=== PATIENT | female | born 1930 | race Caucasian/White ===

== ENCOUNTER 2017-12-20 13:03 | Outpatient (CLI) | payer MEDICARE, BC ==
--- NOTE | 2017-12-20 15:21 | RAD ---
CHEST 2 VIEWS: HISTORY: Dyspnea. FINDINGS: Normal cardiac silhouette. The pulmonary vessels and hilum are normal. Costophrenic angles are alexandra r. Lungs are hyperinflated. Chronic changes, without consolidation or mass suspected. There is ruben ateral apical pleural thickening. No pneumothorax. There is diffuse bone demineralization. Promine nt osteophyte formation on the inferior aspect of the left humerus likely due to degenerative change. IMPRESSION: No acute cardiopulmonary process. POS: [facility]
== END 2017-12-20 13:04 | disposition home or self-care (01) ==
LOC: RAD 13:03
PROVIDERS: ATTEND Internal Medicine Critical Care Medicine
DX: R06.00 Dyspnea, unspecified (principal)
CPT/HCPCS: 71046

== ENCOUNTER 2018-07-04 12:38 | Outpatient (CLI) | payer MEDICARE, BC ==
--- NOTE | 2018-07-04 15:52 | RAD ---
CHEST TWO VIEWS: HISTORY: Dyspnea. COMPARISON: 12/20/2017 FINDINGS: Normal cardiac silhouette. Pulmonary vessels and hilum are normal. Costophrenic angles are clear. Lungs are hyperinflated with chronic changes. No masses or consolidation. No pneumothorax. Mild teo ne demineralization. IMPRESSION: No acute cardiopulmonary process. POS: [facility]
== END 2018-07-04 12:39 | disposition home or self-care (01) ==
LOC: RAD 12:38
PROVIDERS: ATTEND Internal Medicine Critical Care Medicine
DX: R06.00 Dyspnea, unspecified (principal)
CPT/HCPCS: 71046

== ENCOUNTER 2019-02-16 12:58 | Outpatient (CLI) | payer MEDICARE, BC ==
--- NOTE | 2019-02-16 13:19 | RAD ---
PA AND LATERAL VIEWS CHEST: HISTORY: Dyspnea. FINDINGS: Comparison is made with the exam of 07/04/2018. The heart size is normal. The aorta is tortuous. The lungs are expanded without focal areas of cons olidation, pneumothoraces, or pleural effusions. Mild chronic changes are stable. Bony structures a re unchanged. There are degenerative changes in the spine. IMPRESSION: Stable exam. No acute process. POS: [facility]
== END 2019-02-16 12:59 | disposition home or self-care (01) ==
LOC: RAD 12:58
PROVIDERS: ATTEND Internal Medicine Critical Care Medicine
DX: R06.00 Dyspnea, unspecified (principal)
CPT/HCPCS: 71046

== ENCOUNTER 2020-05-11 08:45 | Emergency (ER) | payer MEDICARE, BC ==
[2020-05-11] MEDS ORDERED: Acetaminophen 325 MG TAB ONE (09:44)
[2020-05-11 10:04] LABS: #Eosinphils 0.2 thou/uL (0.0-0.7); #Lymphocytes 0.8 thou/uL (1.20-3.40); #Monocytes 1.1 thou/uL (0.11-0.59); #Neutrophils 14.6 thou/uL (1.40-6.50); %Eosinophils 1.4 % (0.0-10.0); %Lymphocytes 4.8 % (21.0-51.0); %Monocytes 6.6 % (0.0-10.0); %Neutrophils 87.1 % (42.0-75.0); Mean Corpuscular HGB CONC 32.5 g/dL (32.0-36.0); Mean Corpuscular Hemoglobin 31.4 pg (27.0-31.0); Mean Corpuscular Volume 96.4 fL (78.0-98.0); Mean Platelet Volume 6.9 fL (7.4-10.4); Platelet Count 277 thou/uL (130-400); RBC Distribution Width 11.6 % (11.5-14.5); Red Blood Cell (RBC) Count 4.47 mill/uL (4.20-5.40); White Blood Cell (WBC) Count 16.8 thou/uL (4.8-10.8)
[2020-05-11 10:24] LABS: ALT (SGPT) 22 U/L (8-55); AST (SGOT) 27 U/L (5-34); Albumin 4.2 g/dL (3.4-4.8); Alkaline Phosphatase 113 U/L (40-110); Anion Gap 11 mmol/L (10-20); BUN (Urea Nitrogen) 9 mg/dL (9.8-20.1); Bilirubin, Total 0.8 mg/dL (0.2-1.2); Calc. Creatinine Clearance 0 mL/min (70-130); Calcium 9.9 mg/dL (7.8-10.44); Carbon Dioxide 32 mmol/L (23-31); Chloride 95 mmol/L (98-107); Estimated GFR-MDRD 70; Globulin 2.9 g/dL (2.4-3.5); Glucose 130 mg/dL (83-110); Potassium 3.5 mmol/L (3.5-5.1); Protein, Total 7.1 g/dL (6.0-8.3); Sodium 134 mmol/L (136-145)
[2020-05-11 10:58] LABS: Bilirubin Negative (Negative); Blood, Urine Negative (Negative); Clarity Turbid (Clear); Glucose, Urine (Dipstick) Normal (Negative); Ketone, Urine Negative (Negative); Leukocyte Negative Leu/uL (Negative); Nitrite Negative (Negative); Protein, Urine (Dipstick) Negative (Neg-Trace); Specific Gravity, Urine 1.009 (1.002-1.036); Urobilinogen Normal mg/dL (Less than 2)
--- NOTE | 2020-05-11 11:22 | RAD ---
PORTABLE CHEST: HISTORY: Syncopal episode. FINDINGS: Heart size within normal limits. There are atherosclerotic changes of the aorta. The lungs are alexandra r of any confluent infiltrative process. There are some slight vague interstitial opacities in the l lion bases slightly more prominent than on the previous exam. I cannot exclude this is early ground-g lass infiltrative lung change. The bones appear demineralized. There are arthritic changes of both shoulders. IMPRESSION: Chronic lung changes. Some of the changes in the lung bases are slightly more prominent than on the prior examination. I cannot exclude these are ground-glass infiltrates. Clinical correlation as to any potential for COVID exposure. POS: OFF
--- NOTE | 2020-05-11 11:23 | RAD ---
RIGHT SHOULDER 3 VIEWS: HISTORY: Shoulder pain after falling off the toilet. FINDINGS: There are moderate arthritic changes of the AC and glenohumeral joints. There are no signs of fractu re or dislocation. IMPRESSION: No acute injury. POS: OFF
--- NOTE | 2020-05-11 11:23 | RAD ---
RIGHT ELBOW 2 VIEWS: HISTORY: The patient passed out getting off of the toilet. Elbow pain. FINDINGS: The bones are demineralized. There are arthritic changes of the elbow. There is no fracture or join t effusion. IMPRESSION: No evidence of fracture. POS: OFF
--- NOTE | 2020-05-11 11:27 | CT ---
CT OF BRAIN PERFORMED WITHOUT CONTRAST ENHANCEMENT: HISTORY: Syncopal episode. The patient passed out when getting off the toilet. COMPARISON: A 03/01/2016 study. FINDINGS: Generalized ventricular and sulcal prominence. There are no signs of intracerebral hemorrhage or ext raaxial fluid collections. The mastoid air cells and visualized sinuses are clear. IMPRESSION: No acute intracranial abnormalities. POS: [facility]
--- NOTE | 2020-05-11 11:31 | CT ---
CT OF CERVICAL SPINE PERFORMED WITHOUT CONTRAST ENHANCEMENT: HISTORY: Neck pain. The patient fell off of a toilet. FINDINGS: The bones are demineralized. The vertebral bodies maintain normal height. There is marked disk narr owing at C4-5 with minimal anterolisthesis. There is severe disk narrowing at C5-6 and moderately se isi disk narrowing at C6-7. Anterolisthesis of C6 on C7 is present. There is calcification associa nicolas with the disk levels and some of the interspinous ligaments. 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 There is no evidence of any central canal stenosis. There are prominent uncovertebral hypertrophic c hanges at C5-6 causing severe left foraminal narrowing and some mild to moderate right foraminal narr owing. There is no CT evidence for a fracture. IMPRESSION: No Ct evidence of fracture of the cervical spine. POS: OFF
== END 2020-05-11 12:00 | disposition home or self-care (01) ==
LOC: ERS 08:45
DX: S09.90XA Unspecified injury of head, initial encounter (principal); S40.011A Contusion of right shoulder, initial encounter; S50.01XA Contusion of right elbow, initial encounter; E03.9 Hypothyroidism, unspecified; E78.5 Hyperlipidemia, unspecified; I10 Essential (primary) hypertension; Z79.899 Other long term (current) drug therapy; W18.30XA Fall on same level, unspecified, initial encounter
CPT/HCPCS: 36415; 51701; 70450; 71045; 72125; 80053; 81003; 85025; 93005

== ENCOUNTER 2020-10-28 23:27 | Emergency (ER) | payer MEDICARE, BC ==
[2020-10-28] MEDS ORDERED: Lidocaine 1% PF 5 ML VIAL ONE (23:40)
[2020-10-28] MEDS ORDERED: Boostrix 0.5 ML (Tdap) VIAL ONE (23:43)
[2020-10-28] MEDS ORDERED: Morphine 2 MG/ML VIAL ONE (23:59)
[2020-10-29] MEDS ORDERED: Ondansetron PF 4 MG/2 ML Vial ONE
--- NOTE | 2020-10-29 00:02 | CT ---
Cervical spine CT without contrast: 10/28/2020 COMPARISON: 05/11/2020 HISTORY: Fall, trauma, pain TECHNIQUE: Axial CT imaging at 2.5 mm intervals through the cervical spine with coronal and sagittal reformatted imaging FINDINGS: The visualized lung apices demonstrate no acute findings. The C1 ring is intact. The occipital condyles, the dens, and the C1-2 articulation demonstrate no acu te findings. There is prominent degenerative change at the C1-2 articulation on the left and there is prominent degenerative change involving the atlantoaxial interspace. There is stable mild anteroli sthesis at C4-5, C6-7, and C7-T1. No prevertebral soft tissue swelling. Prominent multilevel lower cervical spine facet hypertrophy noted bilaterally. No acute fracture or evidence of dislocation. There is an age indeterminant partially visualized infe rior endplate fracture of the T3 vertebral body. IMPRESSION: Prominent multilevel cervical spine degenerative change with no displaced fracture or miles dence of dislocation within the cervical spine. Partially visualized T3 fracture, age indeterminate, and incompletely imaged on this exam. If there are symptoms referable to this region, a dedicated CT of the thoracic spine is advised.
--- NOTE | 2020-10-29 00:04 | CT ---
Head CT without contrast 10/29/2020: COMPARISON: 05/11/2020 HISTORY: Fall, trauma, pain TECHNIQUE: Axial CT imaging at 5 mm intervals from vertex through skull base without contrast FINDINGS: The visualized paranasal sinuses and mastoid air cells are well aerated. No displaced arpan rial fracture. No intracranial hemorrhage, midline shift, mass effect, or ventricular enlargement. Stable periventricular hypodensity suggests small vessel disease. Stable cerebral volume loss. There is soft tissue swelling in the right supraorbital region. IMPRESSION: Chronic findings as above. No intracranial hemorrhage or displaced calvarial fracture.
[2020-10-29] MEDS ORDERED: Bacitracin 1 PK ONE (01:13)
--- NOTE | 2020-10-29 07:41 | RAD ---
EXAM: 2 views of the right humerus HISTORY: right arm pain after fall COMPARISON: None FINDINGS: 2 views of the right humerus shows a mildly comminuted fracture of the right humeral neck. No dislocation of the humeral head is seen. Surrounding soft tissue swelling is seen. IMPRESSION: Right humeral neck fracture
--- NOTE | 2020-10-29 07:42 | RAD ---
XR Forearm Rt 2 View STANDARD History: Fall. Injury Comparison: None Findings: Forearm is intact. No acute displaced fracture. Impression: Intact forearm
--- NOTE | 2020-10-29 07:43 | RAD ---
EXAM: 3 views of the right wrist HISTORY: Wrist pain after fall COMPARISON: None FINDINGS: 3 views of the right wrist shows no evidence of acute fracture or dislocation. Mild soft ti ssue swelling is seen. Severe degenerative changes are seen in the right wrist with narrowing of intercarpal spaces and the radiocarpal joint. Moderate first CMC osteoarthritis is seen. Multiple oss ifications are seen surrounding the wrist. There is calcification of the TFCC. 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
== END 2020-10-29 01:59 | disposition home or self-care (01) ==
LOC: ERS 23:27
DX: S42.211A Unspecified displaced fracture of surgical neck of right humerus, initial encounter for closed fracture (principal); S01.111A Laceration without foreign body of right eyelid and periocular area, initial encounter; S01.81XA Laceration without foreign body of other part of head, initial encounter; I10 Essential (primary) hypertension; E03.9 Hypothyroidism, unspecified; E78.2 Mixed hyperlipidemia; I48.91 Unspecified atrial fibrillation; Z79.01 Long term (current) use of anticoagulants; Z79.899 Other long term (current) drug therapy; Z23 Encounter for immunization; W01.0XXA Fall on same level from slipping, tripping and stumbling without subsequent striking against object, initial encounter
CPT/HCPCS: 12013; 70450; 72125; 73060; 73090; 73110; 90471; 90715; 96374; 96375; 99284; J2270; J2405